=== PATIENT | male | born 1960 | race Hispanic/Latino ===

== ENCOUNTER 2017-06-30 12:48 | Outpatient (CLI) | payer MEDICARE, MEDICAID ==
--- NOTE | 2017-06-30 13:42 | CT ---
CT THORAX NONCONTRAST: (Low dose lung cancer screening exam) Date: 06/30/17 HISTORY: 57-year-old male with history of smoking for 45 years. Z87.891. FINDINGS: There are streaky densities at the medial basilar segment of the left lower lobe, extending from the inferior hilum to the diaphragmatic surface, consistent with scar or subsegmental atelectasis. Otherw ise, the lungs are clear, with no suspicious pulmonary nodules larger than 4 mm. No bullae, bronchiec tasis, or honeycombing. No pleural effusion or pneumothorax. No thoracic aortic aneurysm. No mediasti nal lymphadenopathy. No cardiomegaly or pericardial effusion. There are atherosclerotic calcification s, and probably at least one stent, in coronary arteries. There are no destructive osseous lesions. IMPRESSION: 1. Lung-RADS Category 1 - Negative (less than 1% chance of malignancy). 2. Focal pulmonary scar or subsegmental atelectasis at left lower lobe. 3. Evidence for coronary atherosclerotic disease. 4. Routine annual [address] low dose CT recommended. DANO Woodward POS: DEVYN
== END 2017-06-30 12:49 | disposition home or self-care (01) ==
LOC: CT 12:48
PROVIDERS: ATTEND Internal Medicine
DX: Z87.891 Personal history of nicotine dependence (principal); I25.10 Atherosclerotic heart disease of native coronary artery without angina pectoris
CPT/HCPCS: G0297

== ENCOUNTER 2017-08-05 09:06 | Emergency (ER) | payer MEDICARE, MEDICAID ==
--- NOTE | 2017-08-05 10:12 | RAD ---
PORTABLE CHEST 1 VIEW: DATE: 08/05/17. TIME: 10:00 a.m. HISTORY: Cough, flu-like symptoms. FINDINGS: Comparison is made with the exam of 10/12/15. The heart size is normal. The lungs are expanded without focal areas of consolidation, pneumothorax, or pleural effusions. IMPRESSION: No radiographic evidence of acute cardiopulmonary process. POS: C
== END 2017-08-05 10:33 | disposition home or self-care (01) ==
LOC: ERS 09:06
DX: J06.9 Acute upper respiratory infection, unspecified (principal); E78.5 Hyperlipidemia, unspecified; J45.909 Unspecified asthma, uncomplicated; I10 Essential (primary) hypertension; I25.2 Old myocardial infarction; F17.210 Nicotine dependence, cigarettes, uncomplicated; Z79.82 Long term (current) use of aspirin; Z79.899 Other long term (current) drug therapy
CPT/HCPCS: 71045

== ENCOUNTER 2018-10-22 03:16 | Emergency (ER) | payer MEDICARE, MEDICAID ==
[2018-10-22] MEDS ORDERED: hydrALAZINE 20 MG/ML VIAL ONE (04:15)
[2018-10-22] MEDS ORDERED: Sucralfate 1 GM/10 ML UDCUP ONE (04:38)
[2018-10-22 04:45] LABS: #Eosinphils 0.2 thou/uL (0.0-0.7); #Lymphocytes 2.1 thou/uL (1.20-3.40); #Monocytes 0.6 thou/uL (0.11-0.59); #Neutrophils 6.5 thou/uL (1.40-6.50); %Basophils 0.4 % (0.0-1.0); %Monocytes 6.1 % (0.0-10.0); %Neutrophils 69.5 % (42.0-75.0); Hemoglobin 15.5 g/dL (14.0-18.0); Mean Corpuscular HGB CONC 36.2 g/dL (32.0-36.0); Mean Platelet Volume 8.5 fL (7.4-10.4); Platelet Count 195 thou/uL (130-400); RBC Distribution Width 12.4 % (11.5-14.5); Red Blood Cell (RBC) Count 4.56 mill/uL (4.70-6.10); White Blood Cell (WBC) Count 9.4 thou/uL (4.8-10.8)
[2018-10-22 05:13] LABS: ALT (SGPT) 21 U/L (8-55); AST (SGOT) 16 U/L (5-34); Albumin 4.1 g/dL (3.5-5.0); Alkaline Phosphatase 120 U/L (40-150); Anion Gap 12 mmol/L (10-20); BUN (Urea Nitrogen) 8 mg/dL (8.4-25.7); Bilirubin, Total 0.7 mg/dL (0.2-1.2); Calc. Creatinine Clearance 0 mL/min (70-130); Calcium 9.1 mg/dL (7.8-10.44); Carbon Dioxide 23 mmol/L (22-29); Chloride 108 mmol/L (98-107); Estimated GFR-MDRD Greater than 90; Globulin 2.7 g/dL (2.4-3.5); Glucose 105 mg/dL (70-105); Potassium 3.9 mmol/L (3.5-5.1); Protein, Total 6.8 g/dL (6.0-8.3); Sodium 139 mmol/L (136-145)
[2018-10-22] MEDS ORDERED: Aspirin Chewable 81 MG TAB ONE (05:20)
[2018-10-22] MEDS ORDERED: Acetaminophen 325 MG TAB ONE (05:20)
[2018-10-22] MEDS ORDERED: Magnesium Citrate 300 ML BOT ONE (05:38)
[2018-10-22] MEDS ORDERED: cloNIDine 0.1 MG TAB ONE (05:38)
--- NOTE | 2018-10-22 07:18 | RAD ---
CHEST 1 VIEW: Date: 10/22/18 INDICATION: Elevated blood pressure at home. COMPARISON: Prior exam dated 08/05/17. FINDINGS: There is stable mild cardiomegaly. Lungs are clear. No pleural effusion or pneumothorax evident. No a cute osseous abnormality is evident. IMPRESSION: No acute abnormality. POS: BH
--- NOTE | 2018-10-22 09:07 | CT ---
PRELIMINARY REPORT/[facility]/EMERGENCY AFTER HOURS PROCEDURE: EXAM: CT Head Without Contrast EXAM DATE/TIME: 10/22/2018 4:07 AM CLINICAL HISTORY: 58 years old, male; Pain; Patient HX: Er 6. Headache; 58 y/o m, with h/o HTN, presents to ED for marisa madelaine to custodial following PT noted to be hypertensive by custodial staff during intake. PT notes IRBY. TECHNIQUE: Imaging protocol: Axial computed tomography images of the head without contrast. COMPARISON: No relevant prior studies available. FINDINGS: Brain: Small old lacunar infarction in the right basal ganglia region versus incidental prominent air space. No brain edema. No intracranial hemorrhage. Ventricles: Normal. No ventriculomegaly. Bones/joints: Nasal bone fractures, age indeterminate. Sinuses: Incidental sinus mucosal thickening present. No fluid levels to indicate sinusitis. Mastoid air cells: Visualized mastoid air cells are well aerated. No mastoid effusion. Soft tissues: Unremarkable. IMPRESSION: 1. Nasal bone fractures, age indeterminate. 2. No acute brain findings. Thank you for allowing us to participate in the care of your patient. Dictated and Authenticated by: Ramiro Greenberg MD 10/22/2018 4:17 AM Central Time ([place] & [place]) FINAL REPORT CT BRAIN WITHOUT CONTRAST: Date: 10/22/18 INDICATION: History of headache. IMPRESSION: I agree with the preliminary report provided by Lolis. POS: KHALIDA
--- NOTE | 2018-10-23 11:35 | EKG ---
Test Reason : Blood Pressure : / mmHG Vent. Rate : 067 BPM Atrial Rate : 067 BPM P-R Int : 180 ms QRS Dur : 088 ms QT Int : 398 ms P-R-T Axes : 043 040 076 degrees QTc Int : 420 ms Normal sinus rhythm Septal infarct , age undetermined Nonspecific ST-T changes Abnormal ECG Confirmed by DR. Josue SHAH (3) on 10/23/2018 11:34:56 AM Referred By: Confirmed By:DR. Josue SHAH
== END 2018-10-22 05:35 ==
LOC: ERS 03:16
DX: I10 Essential (primary) hypertension (principal); F43.10 Post-traumatic stress disorder, unspecified; F17.210 Nicotine dependence, cigarettes, uncomplicated; I25.2 Old myocardial infarction; E78.5 Hyperlipidemia, unspecified; Z79.51 Long term (current) use of inhaled steroids; Z79.82 Long term (current) use of aspirin; Z79.899 Other long term (current) drug therapy
CPT/HCPCS: 36415; 70450; 71045; 80053; 84484; 85025; 93005; 96374; J0360

== ENCOUNTER 2021-10-29 00:05 | Emergency (ER) | payer MEDICAID, MEDICARE | END 2021-10-29 00:38 | disposition home or self-care (01) | LOC: ERS 00:05 | DX: M25.512 Pain in left shoulder (principal); M54.2 Cervicalgia; G89.29 Other chronic pain; I10 Essential (primary) hypertension; E78.5 Hyperlipidemia, unspecified; E78.00 Pure hypercholesterolemia, unspecified; J44.9 Chronic obstructive pulmonary disease, unspecified; F17.210 Nicotine dependence, cigarettes, uncomplicated; I25.2 Old myocardial infarction; Z87.19 Personal history of other diseases of the digestive system; Z95.5 Presence of coronary angioplasty implant and graft | CPT/HCPCS: 99283 ==